=== PATIENT | female | born 1980 | race Caucasian/White ===

== ENCOUNTER 2024-01-04 14:54 | Outpatient (CLI) | payer OTHER ==
[2024-01-04 15:41] LABS: #Basophils 0.08 10x3/uL (0.0-0.2); %Basophils 0.9 % (0.0-1.0); %Eosinophils 5.3 % (0.0-10.0); %Lymphocytes 37.8 % (21.0-51.0); %Monocytes 6.7 % (0.0-10.0); %Neutrophils 49.1 % (42.0-75.0); Hematocrit 40.9 % (36.0-47.0); Hemoglobin 13.5 g/dL (12.0-16.0); Mean Corpuscular Hemoglobin 29.7 pg (27.0-31.0); Mean Corpuscular Volume 89.9 fL (78.0-98.0); Mean Platelet Volume 9.2 fL (7.4-10.4); Platelet Count 318 10x3/uL (130-400); RBC Distribution Width 13.2 % (11.5-14.5); Red Blood Cell (RBC) Count 4.55 mill/uL (4.20-5.40)
== END 2024-01-04 14:55 | disposition home or self-care (01) ==
LOC: LABBT 14:54
PROVIDERS: ATTEND Orthopaedic Surgery
DX: Z01.812 Encounter for preprocedural laboratory examination (principal); M20.012 Mallet finger of left finger(s)
CPT/HCPCS: 85025

== ENCOUNTER 2024-01-08 06:11 | Day surgery (SDC) | payer OTHER ==
[2024-01-04 15:15] VITALS: BMI 20.7
[2024-01-08] MEDS ORDERED: Lidocaine 1% MPF 2 ML VIAL ONE (07:31)
[2024-01-08] MEDS ORDERED: CEFAZOLIN 2 GM VIAL ONE (07:31)
[2024-01-08] MEDS ORDERED: Bacitracin Zinc Ointment 30 gm TUBE ONE (07:54)
[2024-01-08] MEDS ORDERED: Lidocaine 1% (PF) 30 ML VIAL ONE (07:54)
[2024-01-08] MEDS ORDERED: Midazolam HCl 2 mg/2 ml Vial ONE (07:56)
[2024-01-08] MEDS ORDERED: Lidocaine 2% PF 5 ML VIAL ONE (07:56)
[2024-01-08] MEDS ORDERED: Ondansetron PF 4 MG/2 ML Vial ONE (07:56)
[2024-01-08] MEDS ORDERED: fentaNYL PF 100 MCG/2 ML SYRINGE ONE ×2 (07:56→09:14)
[2024-01-08] MEDS ORDERED: Dexamethasone 4 mg/ml Vial ONE (07:56)
[2024-01-08] MEDS ORDERED: PROPOFOL 20 ML ONE (07:56)
[2024-01-08] MEDS ORDERED: ePHEDrine Sulfate 50 MG/10 ML VIAL ONE (08:24)
== END 2024-01-08 10:28 | disposition home or self-care (01) ==
LOC: SDC 06:11
PROVIDERS: ATTEND Orthopaedic Surgery
PROC: 0LQ80ZZ Repair Left Hand Tendon, Open Approach (ICD-10-PCS; principal; 2024-01-08)
PROC: 2W5 Placement, Anatomical Regions, Removal (ICD-10-PCS; principal; 2024-01-08)
PROC: 0PHV34Z Insertion of Internal Fixation Device into Left Finger Phalanx, Percutaneous Approach (ICD-10-PCS; principal; 2024-01-08)
DX: M20.012 Mallet finger of left finger(s) (principal); Z79.899 Other long term (current) drug therapy; Z90.710 Acquired absence of both cervix and uterus; W54.0XXA Bitten by dog, initial encounter
CPT/HCPCS: A6223; J1100; J2250; J2405; J2704